=== PATIENT | male | born 1945 | race Caucasian/White ===

== ENCOUNTER 2019-03-07 17:50 | Emergency (ER) ==
[2019-03-07] MEDS ORDERED: AMIDATE IVP STA (17:52)
[2019-03-07] MEDS ORDERED: ANECTINE IVP STA (17:52)
[2019-03-07] MEDS ORDERED: NORCURON IVP STA ×3 (18:05→20:10)
[2019-03-07 18:08] VITALS: TEMP 97.9; BMI 29.5
--- NOTE | 2019-03-07 18:39 | DI ---
Exam: Chest one-view History: Respiratory distress and tube placement FINDINGS: Normal cardiomediastinal contours. Normal pulmonary vasculature. Linear atelectasis in t he bases. No focal infiltrate or consolidation. Atherosclerotic calcification of the aorta. No acu te chest wall abnormality. Impression: Diminished lung volumes with linear lung base atelectasis. Endotracheal tube in place
--- NOTE | 2019-03-07 18:40 | ED.PDOC ---
General ED Provider: Dr. ETHAN SHEIKH Chief Complaint: Respiratory Complaint Stated Complaint: 73 yrs man was in parking lot of [employer] when he suddnely turned blue and unresponsive arrived at [facility] ED un responsive with fixed dilated pupils with agonal shallow breathing . Time Seen by Physician: 17:55 (intubated 1744 jose first attempt) Mode of Arrival: Stretcher Information Source: Other Exam Limitations: Other (code blue ) Primary Care Provider: PIERCE MOTT Referred to ED by: Other (placed on bag mask vent on arrival with jaw trust chin lift awaiting intubation) Nursing and Triage Documentation Reviewed and Agree: No (none avilable ) Does patient meet sepsis criteria?: Yes (code blue ) If yes, has appropriate treatment been initiated?: No System Inflammatory Response Syndrome: Not Applicable Sepsis Protocol: For patient's 13 years and over: Temp is 96.8 and below OR 101 and greater Pulse >90 BPM Resp >20/minute Acutely Altered Mental Status Are patient's symptoms suggestive of a new infection, such as: -Pneumonia -Skin, Soft Tissue -Endocarditis -UTI -Bone, Joint Infection -Implantable Device -Acute Abdominal Infection -Wound Infection -Meningitis -Blood Stream Catheter Infection -Unknown Respiratory Complaint Exam - Respiratory Complaint/Exam Onset/Duration: shothly prior to presentatiom Review of Systems - Review Of Systems Constitutional: Reports: No symptoms Eyes: Reports: No symptoms Ears, Nose, Mouth, Throat: Reports: No symptoms Respiratory: Reports: Short of air Cardiac: Reports: No symptoms GI: Reports: No symptoms : Reports: No symptoms Musculoskeletal: Reports: No symptoms Skin: Reports: No symptoms Neurological: Reports: No symptoms Endocrine: Reports: No symptoms Hematologic/Lymphatic: Reports: No symptoms All Other Systems: Reviewed and Negative Past Medical History - Past Medical History Previously Healthy: No Endocrine: Reports: Dyslipidemia Cardiovascular: Reports: None Respiratory: Reports: COPD Hematological: Reports: None Gastrointestinal: Reports: None Genitourinary: Reports: CKD Neuro/Psych: Reports: None Musculoskeletal: Reports: None Cancer: Reports: Other ( STATED HAD STOMACH SURGEY 2015) - Surgical History General Surgical History: Reports: None - Family History Family History: Reports: None - Social History Smoking Status: Unknown if ever smoked Hx Substance Use: (unknown) Alcohol Screening: None Physical Exam - Physical Exam Appearance: Ill-appearing Ill-appearing: Severe Pain Distress: Severe Eyes: Left pupil size (4mm fixed dilated ) ENT: Ears normal, Nose normal, Oropharynx normal Respiratory: Breath sounds diminished Cardiovascular: Bradycardia GI/: Soft, Nontender, No masses, Bowel sounds normal, No Organomegaly Musculoskeletal: Normal strength, ROM intact, No edema, No calf tenderness Skin: Warm, Dry, Normal color Neurological: Sensation intact, Motor intact, Reflexes intact, Cranial nerves intact, Alert, Oriented Psychiatric: Affect appropriate, Mood appropriate Procedures - Intubation Indication: Present: Airway Protection, Other (resp failure ) Medications: Yes: Succinylcholine (100 mg 17:50), Other (etimodate 10: 17:52) Type of Tube Used: Endotracheal Tube Size: 7 Cricoid Pressure Used: Yes Tube Mann Used: Yes Position of Tube at Lip: 20 Number of Attempts: 1 (PUSH PRESSOR EPI GIVEN 1M OF 1:39476 EPI MIXED WITH 9ML N.S. PUSHED IN STREAM OF IV FLUID RUNNING) Suction Used: Yes Glidescope Used: No CO2 Detector Used: Yes Lung Sounds Equal Bilaterally: Yes Intubation Complications: Present: No complications Tube Inserted By: RAFATI Tube Placement Verified by X-ray: Yes Progress/Xray Impression: CHEST X RAY VERIFIED Re-Evaluation - Re-Evaluation Time of Re-Evaluation: 18:00 Status: Improved Vital Signs Stable: No Additional Comments: remained ta pt's bedside . labs postive for sepsis and combined metabolic, - Re-Evaluation Time of Re-Evaluation: 19:02 (resp acidosis) Physician Notification - Case Discussed Physician Notified: jovany peace Time of Notification: 19:19 (tranfer ) Critical Care Note - Critical Care Note Total Time (mins): 120 Course - Course Hematology/Chemistry: 03/07/19 17:55 03/07/19 17:55 Orders, Labs, Meds: Lab Review 03/07/19 03/07/19 03/07/19 17:55 17:55 17:55 WBC 11.15 H RBC 4.98 Hgb 15.9 Hct 50.1 MCV 100.6 H MCH 31.9 H MCHC 31.7 L RDW Coeff of Andrés 13.2 Plt Count 229 Immature Gran % (Auto) 0.7 Neut % (Auto) 31.3 Lymph % (Auto) 54.1 H Merrick % (Auto) 9.3 Eos % (Auto) 3.9 Baso % (Auto) 0.7 Immature Gran # (Auto) 0.1 Neut # (Auto) 3.5 Lymph # (Auto) 6.0 H Merrick # (Auto) 1.0 Eos # (Auto) 0.4 Baso # (Auto) 0.1 PT 10.4 INR 1.04 APTT 22.5 L Sodium 141.7 Potassium 5.49 H Chloride 105.5 Carbon Dioxide 18.8 L Anion Gap 22.89 BUN 17.4 Creatinine 1.43 H Estimated GFR (MDRD) 48.00 BUN/Creatinine Ratio 12.16 Glucose 189.2 H Lactic Acid Calcium 8.99 Total Bilirubin 0.38 AST 40.0 ALT 42.1 Alkaline Phosphatase 76.1 Total Creatine Kinase 179.3 H CK-MB (CK-2) 7.000 H* CK-MB (CK-2) % 3.9000 Troponin I < 0.012 Total Protein 7.99 Albumin 5.01 H Globulin 2.98 Albumin/Globulin Ratio 1.68 Procalcitonin TSH 4.900 H Free T4 03/07/19 03/07/19 03/07/19 17:55 17:55 18:15 WBC RBC Hgb Hct MCV MCH MCHC RDW Coeff of Andrés Plt Count Immature Gran % (Auto) Neut % (Auto) Lymph % (Auto) Merrick % (Auto) Eos % (Auto) Baso % (Auto) Immature Gran # (Auto) Neut # (Auto) Lymph # (Auto) Merrick # (Auto) Eos # (Auto) Baso # (Auto) PT INR APTT Sodium Potassium Chloride Carbon Dioxide Anion Gap BUN Creatinine Estimated GFR (MDRD) BUN/Creatinine Ratio Glucose Lactic Acid 5.93 H Calcium Total Bilirubin AST ALT Alkaline Phosphatase Total Creatine Kinase CK-MB (CK-2) CK-MB (CK-2) % Troponin I Total Protein Albumin Globulin Albumin/Globulin Ratio Procalcitonin 0.05 TSH Free T4 1.07 Orders Category Date Time Status ABG DRAW REQUEST DAILY@0600 CARDIO 03/08/19 06:00 Ordered ABG DRAW REQUEST DAILY@0600 CARDIO 03/09/19 06:00 Ordered ABG DRAW REQUEST DAILY@0600 CARDIO 03/10/19 06:00 Ordered ABG DRAW REQUEST DAILY@0600 CARDIO 03/11/19 06:00 Ordered ABG DRAW REQUEST Stat CARDIO 03/07/19 17:59 Ordered ABG DRAW REQUEST Stat CARDIO 03/07/19 19:18 Ordered EKG-(ED ONLY) Stat CARDIO 03/07/19 17:54 Ordered NEBULIZER TREATMENT Routine CARDIO 03/07/19 18:59 Ordered NEBULIZER TREATMENT Stat CARDIO 03/07/19 18:59 Ordered SPUTUM INDUCTION Q3D CARDIO 03/10/19 06:00 Ordered SPUTUM INDUCTION Q3D CARDIO 03/13/19 06:00 Ordered SPUTUM INDUCTION Routine CARDIO 03/07/19 19:18 Ordered VENTILATOR Routine CARDIO 03/07/19 19:16 Ordered ED IV/MEDIPORT/POWERPORT .ONCE EMERGENCY 03/07/19 17:53 Active ABG DAILY@0600 LAB 03/08/19 06:00 Ordered ABG DAILY@0600 LAB 03/09/19 06:00 Ordered ABG DAILY@0600 LAB 03/10/19 06:00 Ordered ABG DAILY@0600 LAB 03/11/19 06:00 Ordered ABG Stat LAB 03/07/19 17:59 Ordered ABG Stat LAB 03/07/19 19:18 Ordered BLOOD CULTURE Stat LAB 03/07/19 18:15 Received CBC W/ AUTO DIFF Stat LAB 03/07/19 17:55 Completed COMPREHENSIVE METABOLIC PANEL Stat LAB 03/07/19 17:55 Results CREATINE KINASE Stat LAB 03/07/19 17:55 Results FREE T4 (FREE THYROXINE) Stat LAB 03/07/19 17:55 Completed LACTIC ACID Stat LAB 03/07/19 18:15 Completed PARTIAL THROMBOPLASTIN TIME Stat LAB 03/07/19 17:55 Completed PROCALCITONIN Stat LAB 03/07/19 17:55 Completed PT WITH INR Stat LAB 03/07/19 17:55 Completed SPUTUM CULTURE Q3D LAB 03/10/19 06:00 Ordered SPUTUM CULTURE Q3D LAB 03/13/19 06:00 Ordered SPUTUM CULTURE Routine LAB 03/07/19 19:17 Ordered THYROID STIMULATING HORMONE Stat LAB 03/07/19 17:55 Results TROPONIN I Stat LAB 03/07/19 17:55 Results URINALYSIS C & S IF INDICATED Stat LAB 03/07/19 17:53 Uncollected 0.9 % Sodium Chloride [Saline Flush] MEDS 03/07/19 17:53 Ordered 1 syr IVF PRN PRN Etomidate [Amidate] MEDS 03/07/19 17:52 Discontinued 10 mg IVP ONCE STA NOREPINEPHRINE BITARTRATE INJ 4 MG in SODIUM CHLORIDE 0 MEDS 03/07/19 19:00 Ordered .9%(250ml) 0.9 % Sodium Chloride [Sodium Chloride] 246 ml Norepinephrine Bitartrate Inj [Levophed] 4 mg IV 8 mcg/min Piperacillin Sodium/Tazobactam [Zosyn 4.5 gm] 4.5 gm MEDS 03/07/19 18:46 Ordered 0.9 % Sodium Chloride [Sodium Chloride] 100 ml IV ONCE Sodium Bicarbonate [Sodium Bicarbonate 8.4%] MEDS 03/07/19 18:58 Stat 50 meq IVP ONCE STA Succinylcholine Chloride [Anectine] MEDS 03/07/19 17:52 Discontinued 100 mg IVP ONCE STA Vancomycin HCl [Vancomycin] 1.5 gm MEDS 03/07/19 18:46 Ordered 0.9 % Sodium Chloride [Sodium Chloride] 250 ml IV ONCE Vancomycin HCl [Vancomycin] 1.5 gm MEDS 03/07/19 19:02 Active 0.9 % Sodium Chloride [Sodium Chloride] 500 ml IV ONCE Vecuronium Lewellen [Norcuron] MEDS 03/07/19 19:18 Stat 5 mg IVP ONCE STA Vecuronium Lewellen [Norcuron] MEDS 03/07/19 18:05 Discontinued 8 mg IVP ONCE STA CHEST, 1V AP ONLY DAILY@0700 RADS 03/08/19 07:00 Ordered CHEST, 1V AP ONLY DAILY@0700 RADS 03/09/19 07:00 Ordered CHEST, 1V AP ONLY DAILY@0700 RADS 03/10/19 07:00 Ordered CHEST, 1V AP ONLY DAILY@0700 RADS 03/11/19 07:00 Ordered CHEST, 1V AP ONLY DAILY@0700 RADS 03/12/19 07:00 Ordered CHEST, 1V AP ONLY Stat RADS 03/07/19 17:53 Taken CHEST, 1V AP ONLY Stat RADS 03/07/19 19:[address] ABDOMEN/PELVIS WO CONTRAST Stat RADS 03/07/19 17:[address] CHEST W/O CONTRAST Stat RADS 03/07/19 18:[address] HEAD W/O CONTRAST Stat RADS 03/07/19 17:54 Ordered Medications Generic Name Dose Route Start Last Admin Trade Name Freq PRN Reason Stop Dose Admin Norepinephrine Bitartrate 4 mg 250 mls @ 30 mls/hr 03/07/19 19:00 / Sodium Chloride IV .Q8H20M BEN Protocol 8 MCG/MIN Piperacillin Sod/Tazobactam 100 mls @ 100 mls/hr 03/07/19 18:46 03/07/19 19: 09 Sod 4.5 gm/ Sodium Chloride IV 03/07/19 19:45 100 mls/hr ONCE STA Administration Vancomycin HCl 1.5 gm/ Sodium 500 mls @ 250 mls/hr 03/07/19 19:02 Chloride IV 03/07/19 20:45 ONCE STA Sodium Chloride 1 syr 03/07/19 17:53 Saline Flush IVF PRN PRN To flush IV Discontinued Medications Generic Name Dose Route Start Last Admin Trade Name Freq PRN Reason Stop Dose Admin Etomidate 10 mg 03/07/19 17:52 Amidate IVP 03/07/19 17:53 ONCE STA Vancomycin HCl 1.5 gm/ Sodium 250 mls @ 250 mls/hr 03/07/19 18:46 Chloride IV 03/07/19 19:45 ONCE STA Sodium Bicarbonate 50 meq 03/07/19 18:58 Sodium Bicarbonate 8.4% IVP 03/07/19 18:59 ONCE STA Succinylcholine Chloride 100 mg 03/07/19 17:52 Anectine IVP 03/07/19 17:53 ONCE STA Vecuronium Lewellen 8 mg 03/07/19 18:05 Norcuron IVP 03/07/19 18:06 ONCE STA Vital Signs: Temp Pulse Resp BP Pulse Ox 03/07/19 17:55 97.9 F 45 L 0 L 123/63 94 L Departure - Departure Time of Disposition: 20:00 Disposition: TSF SHORT-TRM HOSP Discharge Problem: Hyperkalemia Sepsis Qualifiers: Sepsis type: sepsis due to unspecified organism Qualified Code(s): A41.9 - Sepsis, unspecified organism Acute respiratory failure Qualifiers: Respiratory failure complication: unspecified whether with hypoxia or hypercapnia Qualified Code(s): J96.00 - Acute respiratory failure, unspecified whether with hypoxia or hypercapnia Instructions: Hypotension (ED) Condition: Good Pt referred to PMD for follow-up: Yes IPMP verified?: No Home Medications: Ambulatory Orders Ascorbic Acid [Vitamin C] 1,000 mg PO DAILY 03/07/19 Aspirin [Aspirin EC] 81 mg PO DAILY 03/07/19 Carvedilol [Coreg] 6.25 mg PO BID 03/07/19 Dicyclomine HCl 20 mg PO DAILY 03/07/19 Febuxostat [Uloric] 40 mg PO DAILY 03/07/19 Furosemide 40 mg PO DAILY 03/07/19 Lisinopril [Zestril] 10 mg PO DAILY 03/07/19 Multivitamin [Multivitamin Tablet] 1 tab PO DAILY 03/07/19 Pantoprazole Sodium [Protonix] 40 mg PO DAILY 03/07/19 Pramipexole Di-HCl [Pramipexole ER] 0.375 mg PO DAILY 03/07/19 Pravastatin Sodium [Pravachol] 40 mg PO DAILY 03/07/19 Vitamin E 400 unit PO DAILY 03/07/19
[2019-03-07] MEDS ORDERED: VANCOMYCIN 1.5 GM in SODIUM CHLORIDE 250 ML IV STA (18:46)
[2019-03-07] MEDS ORDERED: ZOSYN 4.5 GM 4.5 GM in SODIUM CHLORIDE 100 ML IV STA (18:46)
[2019-03-07] MEDS ORDERED: SODIUM BICARBONATE 8.4% IVP STA (18:58)
[2019-03-07] MEDS ORDERED: LEVOPHED 4 MG in SODIUM CHLORIDE 246 ML IV SCH (19:00)
[2019-03-07] MEDS ORDERED: VANCOMYCIN 1.5 GM in SODIUM CHLORIDE 500 ML IV STA (19:02)
--- NOTE | 2019-03-07 19:18 | CT ---
EXAM: CT scan of the head without contrast HISTORY: Unresponsive TECHNIQUE: Imaging of the head was performed without contrast. 5 mm thin axial images and coronal a nd sagittal images were provided for interpretation. FINDINGS: The wetzel-white interface appears normal. No acute hemorrhages are seen. There is no mass effect. There are no extraaxial collections. The basal cisterns are patent. The paranasal sinuses and mastoid air cells are clear. The calvarium appears normal. IMPRESSION: No acute intracranial abnormalities are seen.
--- NOTE | 2019-03-07 19:25 | CT ---
EXAM: CT scan of the abdomen pelvis without contrast HISTORY: Abdominal distension, unresponsive TECHNIQUE: Imaging of the abdomen pelvis was performed without contrast. 3 mm thin axial images and coronal and sagittal reconstructions were provided for interpretation. FINDINGS: The liver, spleen, pancreas, adrenal glands and kidneys appear normal. The proximal urete rs are normal size. The small bowel loops are normal caliber. There is no free air. The appendix a ppears normal. There is atrophy of the right kidney. The helical images obtained through the pelvis demonstrate a normal appearance of the rectum, urinary bladder. There is no free fluid seen within the pelvis. There is consolidation seen in the left delio ng base. No lytic or blastic lesions are seen within the osseous structures. IMPRESSION: There is no bowel obstruction or acute inflammatory change seen within the abdomen pelvi s. There is no ureteral obstruction. Left lower lobe atelectasis versus pneumonia.
--- NOTE | 2019-03-07 19:28 | CT ---
EXAM: CT scan of the chest without contrast HISTORY: Unresponsive TECHNIQUE: Imaging of the chest was performed without contrast. 5 mm thin axial images and coronal and sagittal reconstructions were provided for interpretation. FINDINGS: The heart is normal size. There is elevation of the left hemidiaphragm. There is consoli dation seen in the dependent left lung base. There is no pleural separation. No lytic or blastic le sions are seen within the osseous structures. The endotracheal tube is seen in good position. IMPRESSION: There is atelectasis versus pneumonia seen in the left lung base.
[2019-03-07 20:05] VITALS: BP 171/110
[2019-03-07] MEDS: NORCURON ONE (20:10)
[2019-03-08] MEDS: NORCURON ONE (10:19)
== END 2019-03-07 19:45 | disposition short-term general hospital (02) ==
LOC: ED 17:50
DX: J96.00 Acute respiratory failure, unspecified whether with hypoxia or hypercapnia (principal); A41.9 Sepsis, unspecified organism; E87.5 Hyperkalemia; E78.5 Hyperlipidemia, unspecified; J44.9 Chronic obstructive pulmonary disease, unspecified; N18.9 Chronic kidney disease, unspecified; Z79.899 Other long term (current) drug therapy
CPT/HCPCS: 31500; 36415; 80053; 82550; 82553; 82803; 83605; 84145; 84439; 84443; 84484; 85025; 85610; 85730; 87040; 93005; 93010; 96361; 96365; 96368; 96375; 96376; 99291

== ENCOUNTER 2019-03-07 20:09 | Outpatient (CLI) ==
[2019-03-07 18:08] VITALS: BMI 29.5
== END 2019-03-07 20:26 | disposition short-term general hospital (02) ==
LOC: AMBL 20:09
PROVIDERS: ATTEND Internal Medicine
DX: A41.9 Sepsis, unspecified organism (principal)